=== PATIENT | male | born 2000 | race Caucasian/White ===

== ENCOUNTER 2021-02-01 08:07 | Emergency (ER) | payer OTHER ==
[~2021-02-01] VITALS: Ht 167.6 cm; Wt 59.1 kg
[2021-02-01 08:10] VITALS: BP 138/74
== END 2021-02-01 09:34 ==
LOC: EMS 08:10
DX: Z02.89 Encounter for other administrative examinations (principal); F12.90 Cannabis use, unspecified, uncomplicated
CPT/HCPCS: 74176; 99284